=== PATIENT | male | born 1945 | race Caucasian/White ===

== ENCOUNTER 2017-09-08 10:25 | Inpatient (IN) | payer BC ==
[~2017-09-08] VITALS: Ht 182.9 cm; Wt 96.8 kg
[~2017-09-08 10:25] MED LIST: ALDACTONE25 MG PO; DIGOXIN125 MCG PO; LANTUS100 UNITS/; LASIX40 MG PO; LIPITOR20 MG PO; LISINOPRIL10 MG PO; METFORMIN HCL500 MG PO; METOPROLOL SUCC50 MG PO; XARELTO20 MG PO
--- OUTSIDE RECORDS SUMMARY | 2017-09-08 10:28 | XMS REPORT | Clinical Summary ---
Author Author ANGELICA [facility] Organization [facility] Address Unknown Phone Unavailable Care Team Providers Care Engine Inspector Name Role Phone PCP Unavailable Allergies No Known Allergies Current Medications Prescription Sig. Disp. Refills Start End Date Status Date atorvastatin (LIPITOR) 20 Take 20 mg by mouth Active MG tablet daily. difluprednate (DUREZOL) Apply to eye(s). Active 0.05 % Drop digoxin (LANOXIN) 0.125 Take 125 mcg by mouth Active MG tablet daily. insulin glargine (LANTUS) Inject subcutaneously as Active 100 unit/mL injection needed Use as directed . SITagliptin (JANUVIA) 100 Take 100 mg by mouth Active MG tablet daily. losartan (COZAAR) 100 MG Take 100 mg by mouth Active tablet daily. metFORMIN (GLUCOPHAGE) Take 1,000 mg by mouth 2 Active 1000 MG tablet (two) times daily with breakfast and dinner. potassium chloride Take 20 mEq by mouth Active (KLOR-CON) 20 mEq packet daily . spironolactone Take 25 mg by mouth Active (ALDACTONE) 25 MG tablet daily. torsemide (DEMADEX) 20 MG Take 20 mg by mouth Active tablet daily. polymyxin B 1 drop. Active sulf-trimethoprim (POLYTRIM) 10,000 unit- 1 mg/mL Drop rivaroxaban (XARELTO) 10 Take by mouth. 12/25/19 Discontin mg Tab tablet 17 ued Active Problems Not on file Encounters Date Type Specialty Care Team Description 04/28/2017 Hospital Shilpa Eldridge MD Encounter 04/28/2017 Anesthesia Enrique Portillo MD Event 04/28/2017 Procedure Pass 04/28/2017 Surgery Shilpa Eldridge MD EXTRACTION,CATARACT W/IOL 12/25/2016 Hospital Maria Luisa Abad MD Encounter 12/25/2016 Anesthesia Enrique Portillo MD Event 12/25/2016 Procedure Pass 12/25/2016 Surgery Maria Luisa Abad MD VITRECTOMY,REMOVAL PRERETINAL MEMBRANE after 09/07/2016 Social History Tobacco Use Types Packs/Day Years Used Date Former Smoker Quit: 05/18/2004 Smokeless Tobacco: Never Used Alcohol Use Drinks/Week oz/Week Comments Yes 1 Standard 0.5 drinks or equivalent Sex Assigned at Date Recorded Not on file Last Filed Vital Signs Vital Sign Reading Time Taken Blood Pressure 105/51 04/28/2017 11:40 AM COMMUNITY SERVICE SPECIALIST Pulse 56 04/28/2017 11:40 AM COMMUNITY SERVICE SPECIALIST Temperature 36.7 C (98 F) 04/28/2017 11:20 AM COMMUNITY SERVICE SPECIALIST Respiratory Rate 22 04/28/2017 11:40 AM COMMUNITY SERVICE SPECIALIST Oxygen Saturation 98% 04/28/2017 11:40 AM COMMUNITY SERVICE SPECIALIST Inhaled Oxygen - - Concentration Weight 80.3 kg (177 lb) 04/28/2017 9:34 AM COMMUNITY SERVICE SPECIALIST Height 182.9 cm (6') 04/28/2017 9:34 AM COMMUNITY SERVICE SPECIALIST Body Mass Index 24.01 04/28/2017 9:34 AM COMMUNITY SERVICE SPECIALIST Plan of Treatment Not on file Implants Implanted Type Area Lens Cutter Device Expiration Model / Identifier Date Serial / Lot Iol Tecnis Zcb00 23.0 Yanick Ophthalmol Right: Eye ADV MED OPTICS 04/21 [id number] Zng90-52.0 - [id number] ogy / Implanted: Qty: 1 on 2016 by [id number] Shilpa Eldridge MD / N/A Iol Tecnis Preloaded [place] 24.5 Ophthalmol Left: Eye [place] 2019 PCB00 24.5 Pcb00 24.5 - [id number] [id number] LAB:MEDICAL / Implanted: Qty: 1 on 04/28/2017 by OPTICS [id number] Shilpa Eldridge MD / Procedures Procedure Name Priority Date/Time Associated Diagnosis Comments EXTRACTION,CATARACT W/IOL 04/28/2017 H25.812- LEFT EYE 8:58 AM COMMUNITY SERVICE SPECIALIST CATARACT Special Needs (STANDARD LENS) TREATMENT,RETINOPATHY 12/25/2016 H35.379- MACULAR LASER 8:00 AM CDT PU[place]ERING OF RET[place] Special Needs (25 GA) VITRECTOMY,REMOVAL 12/25/2016 H35.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 Component Value Ref Range POC-Glucose Meter 93Comment: TESTED AT [facility] [address] 70 - 110 mg/dL B [facility] [address] Specimen Performing Laboratory Blood [facility] [address] [place] [address] after 09/07/2016
--- OUTSIDE RECORDS SUMMARY | 2017-09-08 10:28 | XMS REPORT ---
Author Author [facility] Address Unknown Phone Unavailable Care Team Providers Care Food Service Agent Name Role Phone PEACE JAQUEZ Unavailable Unavailable TONI DE LA FUENTE Unavailable Unavailable Problems This patient has no known problems. Allergies, Adverse Reactions, Alerts This patient has no known allergies or adverse reactions. Medications This patient has no known medications. Results Test Description Test Time Test Comments Text Results Atomic Results Result Comments POCT-GLUCOSE METER 2017-04-28 10:00:00 POC-GLUCOSE METER (BEAKER) (test srfa=7980) 93 mg/dL 70-110 TESTED AT [facility] [address] [facility] [address] POCT-GLUCOSE [id number] 07:35:00* Test Item Value Reference Range Comments POC-GLUCOSE METER (BEAKER) (test phdb=4117) 101 mg/dL 70-110 TESTED AT [facility] [address] [facility] [address] POCT-GLUCOSE [id number] 09:55:00* Test Item Value Reference Range Comments POC-GLUCOSE METER (BEAKER) (test wveb=2920) 118 mg/dL 70-110 TESTED AT [place] [address] [facility] [address]
[2017-09-08 11:20] LABS: BASOPHILS % 0.3 % (0.0-1.0); EOSINOPHILS # (AUTO) 0.2 (0.0-0.4); EOSINOPHILS % 2.5 % (0.0-6.0); HEMATOCRIT 39.8 % (38.2-49.6); HEMOGLOBIN 13.5 g/dL (14.0-18.0); LYMPHOCYTES # (AUTO) 1.4 (1.0-3.2); LYMPHOCYTES % 19.6 % (18.0-39.1); MEAN CORPUSCULAR HEMOGLOBIN 32.1 pg (28-32); MEAN CORPUSCULAR HGB CONC 33.9 g/dL (31-35); MEAN CORPUSCULAR VOLUME 94.5 fL (81-99); MONOCYTES # (AUTO) 0.6 (0.2-0.8); MONOCYTES % 8.2 % (4.4-11.3); NEUTROPHILS # (AUTO) 4.9 (2.1-6.9); NEUTROPHILS % 68.7 % (38.7-80.0); PLATELET COUNT 139 x10e3/uL (140-360); RED BLOOD COUNT 4.21 x10e6/uL (4.3-5.7); RED CELL DISTRIBUTION WIDTH 12.4 % (11.7-14.4)
[2017-09-08 11:51] LABS: ALBUMIN 3.8 g/dL (3.5-5.0); ALBUMIN/GLOBULIN RATIO 0.9 (0.8-2.0); CALCIUM 9.6 mg/dL (8.4-10.2); CREATININE, SERUM 2.5 mg/dL (0.72-1.25)
[2017-09-08] MEDS ORDERED: DEXTROSE 50% SYRINGE 50 ML IV STA (12:14)
[2017-09-08] MEDS ORDERED: SODIUM BICARBONATE 8.4% 50 ML VIAL IV STA ×2 (12:14→12:17)
[2017-09-08] MEDS ORDERED: INSULIN REGULAR, HUMAN 100 UNIT/1 ML 3ML VIAL IV ONE (13:00)
[2017-09-08] MEDS ORDERED: SODIUM CHLORIDE 0.9% 1000ML 1,000 ML ONE (13:57)
[2017-09-08] MEDS: SODIUM CHLORIDE 0.9% 1000ML 1,000 ML IV SCH (13:58)
[2017-09-08] MEDS ORDERED: ONDANSETRON HCL INJ 2 MG/ML VIAL IV PRN (14:00)
[2017-09-08] MEDS ORDERED: DEXTROSE 50% SYRINGE 50 ML IV PRN (14:00)
--- OUTSIDE RECORDS SUMMARY | 2017-09-08 14:30 | XMS REPORT | Clinical Summary ---
Author Author ANGELICA [facility] Organization [facility] Address Unknown Phone Unavailable Care Team Providers Care Prep Room Supervisor Name Role Phone PCP Unavailable Allergies No [...] Taken Blood Pressure 105/51 04/28/2017 11:40 AM PRESS TENDER SMOKE SIGNAL Pulse 56 04/28/2017 11:40 AM PRESS TENDER SMOKE SIGNAL Temperature 36.7 C (98 F) 04/28/2017 11:20 AM PRESS TENDER SMOKE SIGNAL Respiratory Rate 22 04/28/2017 11:40 AM PRESS TENDER SMOKE SIGNAL Oxygen Saturation 98% 04/28/2017 11:40 AM PRESS TENDER SMOKE SIGNAL Inhaled Oxygen - - Concentration Weight 80.3 kg (177 lb) 04/28/2017 9:34 AM PRESS TENDER SMOKE SIGNAL Height 182.9 cm (6') 04/28/2017 9:34 AM PRESS TENDER SMOKE SIGNAL Body Mass Index 24.01 04/28/2017 9:34 AM PRESS TENDER SMOKE SIGNAL Plan of Treatment Not on file Implants Implanted Type Area [place] Hat Hydraulic Press Operator Device Expiration Model / Identifier Date Serial / Lot Iol Tecnis Zcb00 23.0 Yanick Ophthalmol Right: Eye [employer]ICS 04/21 SNE78-63.0 Bah46-09.0 - [id number] ogy / Implanted: Qty: 1 on 2016 by [id number] Shilpa Eldridge MD / N/A Iol Tecnis Preloaded [place] 24.5 Ophthalmol Left: Eye [place] 2019 PCB00 24.5 Pcb00 24.5 - [id number] ogy LAB:MEDICAL / Implanted: Qty: 1 on 04/28/2017 by OPTICS [id number] Shilpa Eldridge MD / Procedures Procedure Name Priority Date/Time Associated Diagnosis Comments EXTRACTION,CATARACT W/IOL 04/28/2017 H25.812- LEFT EYE 8:58 AM PRESS TENDER SMOKE SIGNAL CATARACT Special Needs (STANDARD LENS) TREATMENT,RETINOPATHY 12/25/2016 [...] Ref Range POC-Glucose Meter 93Comment: TESTED AT [facility] [address] 70 - 110 mg/dL B [facility] [address] Specimen Performing Laboratory Blood [facility] [address] [place] [address] after 09/07/2016
[2017-09-08] MEDS: INSULIN REGULAR, HUMAN 100 UNIT/1 ML 3ML VIAL SQ SCH ×2 (19:00→21:00)
[2017-09-08 21:07] VITALS: BP 174/83
[2017-09-08 21:32] VITALS: BP 164/74
[2017-09-08 22:46] VITALS: BP 164/74
[2017-09-08] MEDS ORDERED: LOSARTAN POTASS25 MG PO (23:00)
[2017-09-08] MEDS ORDERED: DIGOXIN125 MCG PO (23:00)
[2017-09-08] MEDS ORDERED: TORSEMIDE10 MG PO (23:00)
[2017-09-08] MEDS ORDERED: METFORMIN HCL1000 MG PO (23:00)
[2017-09-08] MEDS ORDERED: POTASSIUM CHLO20 ME1 PO (23:00)
[2017-09-08] MEDS ORDERED: LISINOPRIL2.5 MG PO (23:00)
[2017-09-08] MEDS ORDERED: JANUVIA100 MG PO (23:00)
[2017-09-08] MEDS ORDERED: ALDACTONE25 MG PO (23:00)
[2017-09-08] MEDS ORDERED: LIPITOR20 MG PO (23:00)
[2017-09-08] MEDS ORDERED: METOPROLOL SUCC50 MG PO (23:00)
[2017-09-09] VITALS (7 sets, daily range): BP systolic 117–171; BP diastolic 55–79
[2017-09-09] MEDS: SODIUM CHLORIDE 0.9% 1000ML 1,000 ML IV SCH ×2 (03:06→08:11)
[2017-09-09 06:51] LABS: BASOPHILS % 0.2 % (0.0-1.0); EOSINOPHILS # (AUTO) 0.3 (0.0-0.4); HEMATOCRIT 36.9 % (38.2-49.6); HEMOGLOBIN 12.5 g/dL (14.0-18.0); LYMPHOCYTES # (AUTO) 1.7 (1.0-3.2); MEAN CORPUSCULAR HEMOGLOBIN 31.9 pg (28-32); MEAN CORPUSCULAR HGB CONC 33.9 g/dL (31-35); MEAN CORPUSCULAR VOLUME 94.1 fL (81-99); MONOCYTES # (AUTO) 0.7 (0.2-0.8); MONOCYTES % 8.3 % (4.4-11.3); NEUTROPHILS # (AUTO) 5.7 (2.1-6.9); NEUTROPHILS % 67.9 % (38.7-80.0); PLATELET COUNT 118 x10e3/uL (140-360); RED BLOOD COUNT 3.92 x10e6/uL (4.3-5.7); RED CELL DISTRIBUTION WIDTH 12.5 % (11.7-14.4)
[2017-09-09] MEDS: INSULIN REGULAR, HUMAN 100 UNIT/1 ML 3ML VIAL SQ SCH ×4 (07:30→21:00)
[2017-09-09] MEDS: SITAGLIPTIN 100 MG TAB PO SCH (08:08)
[2017-09-09] MEDS: FUROSEMIDE 40 MG TAB PO SCH (08:09)
[2017-09-09] MEDS: METOPROLOL SUCCINATE 50 MG TAB XL PO SCH (08:09)
[2017-09-09] MEDS ORDERED: SOD POLYSTYRENE SULFONATE SUSP 15 GM/60 ML BTL PO STA (08:12)
[2017-09-09] MEDS ORDERED: INSULIN REGULAR, HUMAN 100 UNIT/1 ML 3ML VIAL IV STA (08:12)
[2017-09-09] MEDS ORDERED: DEXTROSE 50% SYRINGE 50 ML IV STA (08:12)
[2017-09-09] MEDS ORDERED: LACTULOSE SYRUP 20 GM/30 ML UDC PO STA (08:12)
[2017-09-09 08:22] LABS: ALBUMIN 3.2 g/dL (3.5-5.0); CREATININE, SERUM 1.92 mg/dL (0.72-1.25)
[2017-09-09] MEDS ORDERED: ATORVASTATIN 20 MG TAB PO SCH (09:00)
[2017-09-09] MEDS ORDERED: LOSARTAN POTASSIUM 25 MG TAB PO SCH (09:00)
[2017-09-09] MEDS ORDERED: DIGOXIN 0.125 MG TAB PO SCH (09:00)
[2017-09-09] MEDS ORDERED: FUROSEMIDE 40 MG TAB PO SCH (09:00)
[2017-09-09] MEDS: SODIUM BICARBONATE 650 MG TAB PO SCH ×2 (09:08→16:22)
--- NOTE | 2017-09-09 09:11 | Consultation ---
DATE OF CONSULTATION: September 09, 2017 Mr. Rob Lindsey is a 72-year-old gentleman with underlying history of cardiac arrhythmia and congestive heart failure followed by Dr. Solano. A long time patient of Dr. Theodore Mccoy. Renal consulted because of hyperkalemia. Patient had outpatient labs that showed abnormal creatinine and elevated potassium. He does take potassium at home. Liberally takes orange juice and bananas soon, as well as on losartan at home. Currently, awake and alert. No apparent distress. Having his breakfast. Denies nausea, vomiting, shortness of breath. Denies prior of any renal insufficiency or kidney stone disease. Has underlying history of hypertension. Has been taking digoxin 0.125 mg daily, which I am going to stop. He is also on losartan, which I am going to stop. He takes Lasix 40 mg daily. He is currently on normal saline, atorvastatin, metoprolol 50 mg p.o. daily, insulin. For dose schedule, please see MAR. SOCIAL HISTORY: Does not smoke or drink. Is . FAMILY HISTORY: Significant for hypertension. Patient states his prostate is mildly enlarged, but never had a history of any kidney stone disease or any kind of cancer. PHYSICAL EXAMINATION GENERAL: Awake, alert and laying supine. No apparent distress. VITALS: Blood pressure of 155/76, pulse rate 77, afebrile. HEAD AND NECK: Cornea clear. Mucosa dry. LUNGS: Relatively clear. HEART: S1 and S2 audible. ABDOMEN: Otherwise soft and nontender. LOWER EXTREMITY EXAMINATION: Shows chronic skin changes, but no edema. IMPRESSION AND PLAN 1. Hyperkalemia. 2. Acute kidney injury. 3. Distal renal tubular acidosis: No urinary symptoms. Medications reviewed. I have discontinued his digoxin. Obtain a stat digoxin level. I will review the ECG. Place on a renal diet. Will give Kayexalate, lactulose, dextrose, and insulin. Repeat potassium. Kidney ultrasound. Renal workup. Urine protein creatinine ratio. Will hold off on losartan. Continue with Lasix. Continue with IV fluids. Discussed with the patient. He is to bring all this medications. Job#: [id number] MN
[2017-09-09 10:05] LABS: CREATININE,URINE RANDOM 88.81 mg/dL (63-166); TOTAL PROTEIN, URINE 40.4 mg/dL (1-14)
[2017-09-09] MEDS ORDERED: ONDANSETRON HCL 4 MG ORAL DISINTEGRATING TAB SL PRN (11:15)
--- NOTE | 2017-09-09 11:23 | Diagnostic Imaging Report ---
PROCEDURE: Frontal and lateral views of the chest. COMPARISON: None available. INDICATIONS: CHF FINDINGS: Lines/tubes: None. Lungs: The lungs are well inflated and clear. There is no evidence of pneumonia or pulmonary edema. Bibasilar atelectasis. Pleura: There is no pleural effusion or pneumothorax. Heart and mediastinum: The heart and the mediastinum are normal. Atherosclerotic calcifications. Bones: No acute bony abnormality. Degenerative changes of the thoracic spine. IMPRESSION: No acute radiographic abnormality. Dictated by: Frederick Pereyra M.D. on 09/09/2017 at 11:25 Electronically approved by: Frederick Pereyra M.D. on 09/09/2017 at 11:25
--- NOTE | 2017-09-09 11:49 | Diagnostic Imaging Report ---
PROCEDURE:US RETROPERITONEAL ( KIDNEY ). COMPARISON:None. INDICATIONS:GUNNAR TECHNIQUE: Bai-scale and color sonographic images of the bilateral kidneys and bladder where obtained in transverse and longitudinal planes. FINDINGS: RIGHT KIDNEY: 12.5 cm, cortex 2.1 cm Cysts: None. Solid masses: None. Stones: None. Hydronephrosis: None. Echogenicity: Normal. LEFT KIDNEY: 11.3 cm, cortex 1.6 cm Cysts: None. Solid masses: None. Stones: Focal echogenic region with posterior shadowing is present in the interpolar region of the left kidney, measuring 0.6 x 0.6 x 0.8 cm. Hydronephrosis: None. Echogenicity: Normal. Bladder: Clayton catheter is present in the decompressed urinary bladder. Prostate: Not visualized. CONCLUSION: No acute sonographic abnormality. Left nonobstructing nephrolithiasis. Dictated by: Frederick Pereyra M.D. on 09/09/2017 at 11:50 Electronically approved by: Frederick Peryera M.D. on 09/09/2017 at 11:50
[2017-09-09] MEDS ORDERED: LACTULOSE SYRUP 20 GM/30 ML UDC PO ONE (16:45)
[2017-09-09] MEDS ORDERED: SOD POLYSTYRENE SULFONATE SUSP 15 GM/60 ML BTL PO ONE (16:45)
[2017-09-10] VITALS (8 sets, daily range): BP systolic 118–165; BP diastolic 65–92
[2017-09-10] MEDS: SODIUM CHLORIDE 0.9% 1000ML 1,000 ML IV SCH ×3 (05:46→23:36)
[2017-09-10 07:26] LABS: ALBUMIN 3.1 g/dL (3.5-5.0); CREATININE, SERUM 1.78 mg/dL (0.72-1.25)
[2017-09-10] MEDS: INSULIN REGULAR, HUMAN 100 UNIT/1 ML 3ML VIAL SQ SCH ×4 (07:30→21:29)
[2017-09-10] MEDS: METOPROLOL SUCCINATE 50 MG TAB XL PO SCH (08:53)
[2017-09-10] MEDS: SITAGLIPTIN 100 MG TAB PO SCH (08:53)
[2017-09-10] MEDS: FUROSEMIDE 40 MG TAB PO SCH (08:53)
[2017-09-10] MEDS: SODIUM BICARBONATE 650 MG TAB PO SCH ×2 (08:53→17:32)
[2017-09-10] MEDS ORDERED: ATORVASTATIN 20 MG TAB PO SCH (21:00)
[2017-09-11] VITALS: BP 144/67
[2017-09-11 04:17] VITALS: BP 147/75
[2017-09-11 07:12] LABS: BASOPHILS % 0.3 % (0.0-1.0); EOSINOPHILS # (AUTO) 0.2 (0.0-0.4); EOSINOPHILS % 3.1 % (0.0-6.0); HEMATOCRIT 32.9 % (38.2-49.6); HEMOGLOBIN 11.2 g/dL (14.0-18.0); LYMPHOCYTES # (AUTO) 1.5 (1.0-3.2); LYMPHOCYTES % 21.6 % (18.0-39.1); MEAN CORPUSCULAR HEMOGLOBIN 31.6 pg (28-32); MEAN CORPUSCULAR VOLUME 92.9 fL (81-99); MONOCYTES # (AUTO) 0.6 (0.2-0.8); MONOCYTES % 8.8 % (4.4-11.3); NEUTROPHILS # (AUTO) 4.7 (2.1-6.9); NEUTROPHILS % 66.1 % (38.7-80.0); PLATELET COUNT 116 x10e3/uL (140-360); RED BLOOD COUNT 3.54 x10e6/uL (4.3-5.7); RED CELL DISTRIBUTION WIDTH 12.4 % (11.7-14.4)
[2017-09-11] MEDS: INSULIN REGULAR, HUMAN 100 UNIT/1 ML 3ML VIAL SQ SCH (07:30)
[2017-09-11 07:40] LABS: ALBUMIN 2.9 g/dL (3.5-5.0); ANION GAP 9.6 mmol/L (8-16); CALCIUM 8.6 mg/dL (8.4-10.2); CREATININE, SERUM 1.68 mg/dL (0.72-1.25); POTASSIUM 4.6 mmol/L (3.5-5.1)
[2017-09-11 07:55] VITALS: BP 156/85
--- NOTE | 2017-09-11 08:28 | Progress Note ---
DATE: September 11, 2017 Feeling okay. No swelling. Renal function is recovering. Potassium is now normal. PHYSICAL EXAMINATION GENERAL: Laying in bed in no distress. VITALS: Temperature is 97.2, blood pressure 147/75, pulse 54. CHEST: Clear. EXTREMITIES: No edema. ABDOMEN: Benign. Potassium is 4.6, creatinine down to 1.68, BUN 34. Ultrasound was normal. ASSESSMENT 1. Hyperkalemia, improved. 2. Question of chronic kidney disease from nephrosclerosis. PLAN: From a renal standpoint, keep low potassium diet. For the time being, avoid any YANETH inhibitors and angiotensin receptor blockers. Discontinue IV fluids. Okay to go home. Stay on the sodium bicarbonate as I suspect he has metabolic acidosis, which may be distal tubular in origin, but is now better compensated. Job#: [id number] WOOD
[2017-09-11] MEDS: METOPROLOL SUCCINATE 50 MG TAB XL PO SCH (09:00)
[2017-09-11] MEDS: SODIUM BICARBONATE 650 MG TAB PO SCH (09:00)
[2017-09-11] MEDS: SITAGLIPTIN 100 MG TAB PO SCH (09:00)
[2017-09-11] MEDS: FUROSEMIDE 40 MG TAB PO SCH (09:00)
== END 2017-09-11 11:10 | disposition home or self-care (01) | DRG 641 ==
LOC: ER 10:25 → ERHOLD 14:27 → MED/SURG 20:47
PROVIDERS: ADMIT Internal Medicine; ATTEND Internal Medicine
DX: E87.5 Hyperkalemia (principal); N17.9 Acute kidney failure, unspecified; E87.2 Acidosis; I13.0 Hypertensive heart and chronic kidney disease with heart failure and stage 1 through stage 4 chronic kidney disease, or unspecified chronic kidney disease; I50.9 Heart failure, unspecified; E11.22 Type 2 diabetes mellitus with diabetic chronic kidney disease; N18.3 Chronic kidney disease, stage 3 (moderate); N25.89 Other disorders resulting from impaired renal tubular function; N40.0 Benign prostatic hyperplasia without lower urinary tract symptoms; L98.9 Disorder of the skin and subcutaneous tissue, unspecified
CPT/HCPCS: 36415; 71046; 76770; 80053; 80162; 82570; 82948; 83735; 84132; 84156; 85025; 93005; 99284; J7030; J7799

== ENCOUNTER 2018-06-14 09:04 | Inpatient (IN) | payer BC, MEDICARE ==
[~2018-06-14] VITALS: Ht 182.9 cm; Wt 98.4 kg
[~2018-06-14 09:04] MED LIST changes: +JANUVIA100 MG PO; +LISINOPRIL2.5 MG PO; +LOSARTAN POTASS25 MG PO; +METFORMIN HCL1000 MG PO; +POTASSIUM CHLO20 ME1 PO; +TORSEMIDE10 MG PO
--- OUTSIDE RECORDS SUMMARY | 2018-06-14 09:08 | XMS REPORT | Clinical Summary ---
Author Author ANGELICA [facility] Organization [facility] Address Unknown Phone Unavailable Care Team Providers Care Manager Order Name Role Phone Theodore Mccoy PCP Allergies No Known Allergies Medications End Date Status Medication Sig Dispensed Refills Start Date Active atorvastatin (LIPITOR) 20 Take 20 mg by 0 MG tablet mouth daily. Active difluprednate (DUREZOL) Apply to 0 0.05 % Drop eye(s). Active digoxin (LANOXIN) 0.125 Take 125 mcg 0 MG tablet by mouth daily. Active insulin glargine (LANTUS) Inject 0 100 unit/mL injection subcutaneousl y as needed Use as directed . Active SITagliptin (JANUVIA) 100 Take 100 mg 0 MG tablet by mouth daily. Active losartan (COZAAR) 100 MG Take 100 mg 0 tablet by mouth daily. Active metFORMIN (GLUCOPHAGE) Take 1,000 mg 0 1000 MG tablet by mouth 2 (two) times daily with breakfast and dinner. Active potassium chloride Take 20 mEq 0 (KLOR-CON) 20 mEq packet by mouth daily . Active spironolactone Take 25 mg by 0 (ALDACTONE) 25 MG tablet mouth daily. Active torsemide (DEMADEX) 20 MG Take 20 mg by 0 tablet mouth daily. Active polymyxin B 1 drop. 0 sulf-trimethoprim (POLYTRIM) 10,000 unit- 1 mg/mL Drop Active Problems Not on file Social History Date Tobacco Use Types Packs/Day Years Used Quit: 05/18/2004 Former Smoker Smokeless Tobacco: Never Used Alcohol Use Drinks/Week oz/Week Comments Yes 1 Standard 0.5 drinks or equivalent Sex Assigned at Date Recorded Not on file Industry Job Start Date Occupation Not on file Not on file Not on file Travel End Travel History Travel Start No recent travel history available. Last Filed Vital Signs Not on file Plan of Treatment Not on file Implants Device Identifier Shelf Expiration Date Model / Serial / Lot Implanted Type Area Manufactur er 04/21/2020 GCV62-84.0 / [id number] / N/A Iol Tecnis Zcb00 23.0 Yanick Ophthalmol Right: Eye ADV MED Mte74-05.0 - [id number] ogy OPTICS Implanted: Qty: 1 on 2016 by Shilpa Eldridge MD 10/23/2019 PCB00 24.5 / [id number] / Iol Tecnis Preloaded [place] 24.5 Ophthalmol Left: Eye [place] Pcb00 24.5 - [id number] ogy LAB:MEDICA Implanted: Qty: 1 on 04/28/2017 by L Shilpa Jensen MD Results Not on fileafter 06/13/2017 Insurance Payer Benefit Subscriber ID Type Phone Address Plan / Group BLUE CROSS/BLUE SHIELD BCBS PPO xxxxxxxxxxxx PPO [phone] [address] [place] [address] CHOICE
[2018-06-14] MEDS ORDERED: PIPER-TAZ 3.375 GM 50 ML IV ONE (09:30)
[2018-06-14 09:44] LABS: BASOPHILS % 0.3 % (0.0-1.0); EOSINOPHILS # (AUTO) 0.1 (0.0-0.4); EOSINOPHILS % 0.8 % (0.0-6.0); HEMATOCRIT 29.8 % (38.2-49.6); HEMOGLOBIN 10.7 g/dL (14.0-18.0); LYMPHOCYTES # (AUTO) 0.8 (1.0-3.2); LYMPHOCYTES % 9.2 % (18.0-39.1); MEAN CORPUSCULAR HGB CONC 35.9 g/dL (31-35); MEAN CORPUSCULAR VOLUME 94.6 fL (81-99); MONOCYTES # (AUTO) 0.8 (0.2-0.8); MONOCYTES % 8.6 % (4.4-11.3); NEUTROPHILS # (AUTO) 7.1 (2.1-6.9); NEUTROPHILS % 79.1 % (38.7-80.0); PLATELET COUNT 233 x10e3/uL (140-360); RED BLOOD COUNT 3.15 x10e6/uL (4.3-5.7); RED CELL DISTRIBUTION WIDTH 12.9 % (11.7-14.4)
[2018-06-14] MEDS ORDERED: ONDANSETRON HCL INJ 2MG/ML 2ML 2 MG/ML VIAL IV PRN (09:45)
[2018-06-14] MEDS ORDERED: DEXTROSE 50% SYRINGE 50 ML IV PRN (09:45)
[2018-06-14] MEDS ORDERED: SODIUM CHLORIDE 0.9% 1000ML 1,000 ML ONE (09:55)
[2018-06-14] MEDS: SODIUM CHLORIDE 0.9% 1000ML 1,000 ML IV SCH ×2 (09:56→21:27)
[2018-06-14] MEDS ORDERED: VANCOMYCIN HCL 1,500 MG in SODIUM CHLORIDE 0.9% 250ML 300 ML IV ONE (10:00)
[2018-06-14] MEDS ORDERED: MORPHINE SULFATE INJ 4 MG/ML INJ 1ML IV PRN (10:00)
[2018-06-14 10:15] LABS: ALBUMIN 2.4 g/dL (3.5-5.0); ALBUMIN/GLOBULIN RATIO 0.5 (0.8-2.0); ANION GAP 17.6 mmol/L (8-16); CALCIUM 9.3 mg/dL (8.4-10.2); CREATININE, SERUM 2.95 mg/dL (0.72-1.25); POTASSIUM 4.6 mmol/L (3.5-5.1)
[2018-06-14 10:34] LABS: BILIRUBIN,URINE NEGATIVE (NEGATIVE); CLARITY,URINE CLEAR (CLEAR); COLOR,URINE YELLOW (YELLOW); KETONES,URINE NEGATIVE (NEGATIVE); LEUKOCYTE ESTERASE ,URINE NEGATIVE (NEGATIVE); NITRITE,URINE NEGATIVE (NEGATIVE); PROTEIN,URINE DIPSTICK NEGATIVE (NEGATIVE); URINE UROBILINOGEN 0.2 mg/dL (0.2 - 1)
[2018-06-14] MEDS ORDERED: MORPHINE SULFATE 2 MG/ML SYR 1ML IV PRN (11:00)
[2018-06-14] MEDS ORDERED: SODIUM CHLORIDE 0.9% 1000ML 2,000 ML IV ONE (11:00)
[2018-06-14 11:03] LABS: EPITHELIAL CELLS,URINE FEW /LPF; WBC,URINE (MAN) 0-5 /HPF (0-5)
[2018-06-14 11:04] LABS: TRANSITIONAL EPI CELLS,URINE MODERATE
--- NOTE | 2018-06-14 11:10 | Diagnostic Imaging Report ---
Exam: Left elbow 3 views History: Pain and swelling Comparison: None. Findings: No fracture or malalignment. Mild elbow degenerative arthrosis. Soft tissue swelling of the elbow most prominent posteriorly. Impression: No acute osseous abnormality Soft tissue swelling of the elbow. No foci of gas or radiographic osteomyelitis Signed by: Dr. Kodi Mclaughlin M.D. on 06/14/2018 11:07 AM
--- OUTSIDE RECORDS SUMMARY | 2018-06-14 11:28 | XMS REPORT | Clinical Summary ---
Author Author ANGELICA [facility] Organization [facility] Address Unknown Phone Unavailable Care Team Providers Care Special Investigator Name Role Phone Theodore Mccoy PCP Allergies [...] Lot Implanted Type Area Manufactur er 04/21/2020 PYD21-98.0 / [id number] / N/A Iol Tecnis Zcb00 23.0 Yanick Ophthalmol Right: Eye ADV MED Hkw02-79.0 - [id number] ogy OPTICS Implanted: Qty: 1 on 2016 by Shilpa Eldridge MD 10/23/2019 PCB00 24.5 / [id number] / Iol Tecnis Preloaded [place] 24.5 Ophthalmol Left: Eye [place] Pcb00 24.5 - [id number] ogy LAB:MEDICA Implanted: Qty: 1 on 04/28/2017 by L Shilpa Jensen MD Results Not on fileafter 06/13/2017 Insurance Payer Benefit Subscriber ID Type Phone Address Plan / Group BLUE CROSS/BLUE SHIELD BCBS PPO xxxxxxxxxxxx PPO [phone] [address] [place] [address] CHOICE
[2018-06-14] MEDS: INSULIN REGULAR, HUMAN 100 UNIT/1 ML 3ML VIAL SQ SCH ×3 (11:53→21:00)
[2018-06-14 12:40] VITALS: BP 121/59
[2018-06-14 15:21] VITALS: BP 121/59
[2018-06-14 15:28] VITALS: BP 121/59
[2018-06-14 16:15] VITALS: BP 148/67
[2018-06-14 21:25] VITALS: BP 148/67
--- NOTE | 2018-06-14 23:56 | Consultation ---
DATE OF CONSULTATION: June 14, 2018 CHIEF COMPLAINT: Left elbow pain. HISTORY OF PRESENT ILLNESS: This patient is a pleasant 72-year-old male with a significant history of insulin-dependent diabetes mellitus who presents complaining of left elbow pain that started roughly 2 weeks ago. He denies any injury to the left elbow. He states that he has had swelling and redness around the left elbow. He states that roughly 3 to 4 days ago he started having drainage coming from the elbow. He denies any fever or chills. He states he has been treated with oral antibiotics by his primary care physician, Dr. Mccoy, for almost 2 weeks. PAST MEDICAL HISTORY: See H and P. SOCIAL HISTORY: Patient has roughly 62-[id number]-[id number] history of smoking. He states he quit roughly 20 years ago. He denies any ETOH or illicit drug use. He lives with his spouse. PHYSICAL EXAMINATION GENERAL: This is a pleasant, well-nourished male in no apparent distress. He is awake, alert, and oriented appropriately. FOCUS EXAM: Gross inspection of his left elbow shows some mild swelling and perhaps a mild effusion. There is some mild surrounding erythema. He has a punctate draining sinus over the lateral aspect of the elbow. This is draining mild serosanguineous drainage. I was able to express a mild amount of purulent material. After this, it continued to drain serosanguineous drainage. He demonstrates full range of motion with flexion, extension, pronation, and supination. Distal motor and sensory exams are normal. IMAGING: X-rays of the left elbow show some early arthritic changes. There is some mild soft tissue swelling, but no effusion. ASSESSMENT AND PLAN: This is a 72-year-old gentleman with left elbow cellulitis with a draining sinus. The findings were discussed with the patient. Given his present symptoms, I would recommend conservative management with wound care and IV antibiotics. The possibility of irrigation and debridement was discussed. He does not have a tense effusion and has full range of motion and thus I would recommend conservative management. We will get wound care involved. Nursing was instructed in routine dressing changes. We will follow the patient with you. Thank you for the consultation. Dictated by: Harvey Manley PA-C Job#: [id number] CF
[2018-06-15] VITALS (7 sets, daily range): BP systolic 132–141; BP diastolic 62–73
--- NOTE | 2018-06-15 03:08 | NUR ---
Patient received lying in bed. AAO x 3. No complaints of pain. No signs of respiratory distress. Dressing to left elbow clean, dry and intact. IVF infusing at 125 cc/ hr. Bed locked and in lowest position. Bed rails up x 2. Patient instructed to call for assistance when needed. Call light within reach.
[2018-06-15 05:39] LABS: ALBUMIN 1.9 g/dL (3.5-5.0); ALBUMIN/GLOBULIN RATIO 0.5 (0.8-2.0); ANION GAP 12.5 mmol/L (8-16); CALCIUM 8.1 mg/dL (8.4-10.2); CREATININE, SERUM 2.21 mg/dL (0.72-1.25); POTASSIUM 4.5 mmol/L (3.5-5.1)
[2018-06-15] MEDS ORDERED: PIPER-TAZ 3.375 GM 50 ML IV SCH (06:00)
[2018-06-15 06:09] LABS: BASOPHILS % 0.2 % (0.0-1.0); EOSINOPHILS # (AUTO) 0.1 (0.0-0.4); EOSINOPHILS % 1.3 % (0.0-6.0); HEMATOCRIT 26.7 % (38.2-49.6); HEMOGLOBIN 8.4 g/dL (14.0-18.0); LYMPHOCYTES # (AUTO) 0.7 (1.0-3.2); LYMPHOCYTES % 11.7 % (18.0-39.1); MEAN CORPUSCULAR HEMOGLOBIN 31.2 pg (28-32); MEAN CORPUSCULAR HGB CONC 31.5 g/dL (31-35); MEAN CORPUSCULAR VOLUME 99.3 fL (81-99); MONOCYTES # (AUTO) 0.6 (0.2-0.8); MONOCYTES % 8.8 % (4.4-11.3); NEUTROPHILS # (AUTO) 4.7 (2.1-6.9); NEUTROPHILS % 74.5 % (38.7-80.0); PLATELET COUNT 209 x10e3/uL (140-360); RED BLOOD COUNT 2.69 x10e6/uL (4.3-5.7); RED CELL DISTRIBUTION WIDTH 12.6 % (11.7-14.4)
[2018-06-15] MEDS: SODIUM CHLORIDE 0.9% 1000ML 1,000 ML IV SCH ×3 (06:21→15:19)
[2018-06-15] MEDS ORDERED: VANCOMYCIN 1GM/NS 250 ML 250 ML IV SCH (06:45)
[2018-06-15 07:32] LABS: ANISOCYTOSIS SLIGHT; BAND NEUTROPHILS % (MANUAL) 2 %; EOSINOPHILS % (MANUAL) 1 % (0-7); LYMPHOCYTES % (MANUAL) 8 % (19-48); METAMYELOCYTES % (MANUAL) 1 % (0-0); MONOCYTES % (MANUAL) 3 % (3.4-9.0); NEUTROPHILS % (MANUAL) 85 % (40-74); PLATELET ESTIMATE ADEQUATE; POIKILOCYTOSIS SLIGHT; RBC MORPHOLOGY COMMENT NORMAL
[2018-06-15 07:33] LABS: PLATELET MORPHOLOGY COMMENT NORMAL
[2018-06-15] MEDS ORDERED: FUROSEMIDE 40 MG TAB PO SCH (09:00)
[2018-06-15] MEDS: RIVAROXABAN 20 MG TABLET PO SCH (09:00)
[2018-06-15] MEDS: METOPROLOL SUCCINATE 50 MG TAB XL PO SCH (09:30)
[2018-06-15] MEDS: SITAGLIPTIN 100 MG TAB PO SCH (09:30)
[2018-06-15] MEDS: FUROSEMIDE 40 MG TAB PO SCH (09:30)
[2018-06-15] MEDS: METFORMIN HCL 500 MG TAB PO SCH ×2 (09:30→16:50)
[2018-06-15] MEDS: INSULIN REGULAR, HUMAN 100 UNIT/1 ML 3ML VIAL SQ SCH ×4 (09:30→21:00)
[2018-06-15] MEDS: ATORVASTATIN 20 MG TAB PO SCH (09:30)
[2018-06-15] MEDS ORDERED: eliquis PO (10:59)
[2018-06-15] MEDS ORDERED: entresto PO (10:59)
[2018-06-15] MEDS ORDERED: CIPRO500 MG PO (10:59)
--- NOTE | 2018-06-15 14:07 | NUR ---
WOUND CARE CONSULTATION - INITIAL EVALUATION - Patient admitted for cellulitis of Left Elbow with open draining wounds - Presents with open wound to Left Arm at Lateral Aspect and At Bony Elbow Prominence posteriorly. (1x1x2.5 cm) Probing to bone @ elbow. - Periwound hot to touch, boggy. spongy over an area of approx 25 cm x 20cm. - Left lateral Forearm Indurated and tender to touch. - Copious amounts of serosanguineous fluid with few blood clots expressed saturating 1 tray of 4x4 gauze. - Pt awaiting planned procedure for tomorrow for Incision and Wash Out of Left Elbow. - Ravi Score 20 - Conservative PUP with Visco Mattress in progress. RECOMMENDATION: 1. Agree with conservative wound care until I&D washout procedure performed. 2. Left Elbow -Cellulitis with Draining Wounds. - Irrigate wound with Normal Saline Solution and Pat Dry with 4x4 gauze. - Apply Staggered/ Bolstered 4x4 gauze then ABD pad and Secure with Kerlix Wrap and Light Duy Wrap BID and PRN Strikethrough. (No Packing- Goal: Allow Wound To Remain Open and Continue to Drain Onto Dressing) Thank you for consulting with Wound Care. Addendum: 06/15/18 at 1419 by Alexsander Velez RN Amended: Links added.
[2018-06-15] MEDS ORDERED: CEFEPIME HCL 1 GM VIAL IV SCH (15:00)
--- NOTE | 2018-06-15 15:15 | NUR ---
Visit made by the Spiritual Care Department Pastoral Visitor, Myrna Austin. PV provided pastoral presence, hospitality, and supportive listening. Pastoral Visitor informed pt/family of the scope of [employer] and availability. LAUREN JUARES [employer] Spiritual Care Department O: [phone] Pager: [phone] ([phone] calling from)
[2018-06-15] MEDS: CEFEPIME 1GM/NS 0.9% 50 ML 50 ML IV SCH (15:19)
--- NOTE | 2018-06-15 15:55 | Consultation ---
DATE OF CONSULTATION: June 15, 2018 Mr. Lindsey is a pleasant 72-year-old male who has a history of diabetes. Apparently, about 3-4 weeks ago he started having some kind of a defect on his left elbow. Did not pay much attention to it. Gradually got worse. Tried . Went and saw Dr. Mccoy. Apparently, Dr. Mccoy's office started the patient on IV antibiotics and some oral antibiotics as the patient reports. Was sent home. The elbow gradually got worse without any improvement being on antibiotics. Started having some serosanguineous fluid on the pillow when he woke up one day and decided to go back to Dr. Mccoy's office. Upon arrival, the patient was seen, and therefore, the patient was transferred to [facility] for evaluation and possible treatment options of the left elbow. The patient was seen by orthopedic surgery. The plan is for I and D tomorrow. The patient was diagnosed by orthopedic surgery, Dr. Daniels, with septic olecranon bursitis. PAST MEDICAL HISTORY: Including diabetes, hypertension, hyperlipidemia. ALLERGIES: THERE ARE NO ALLERGIES LISTED. LABORATORY STUDIES: White blood cells 6.26, hemoglobin 8.4 and platelet count of 209,000. Creatinine 2.21. Blood culture negative 24 hours times 2. Left elbow culture shows Staph aureus. However, sensitivity is pending. X-ray of the left elbow was done yesterday showing no acute osseous abnormalities. Soft tissue swelling of the elbow. No foci of gas or radiographic osteomyelitis. REVIEW OF SYSTEMS: No nausea, vomiting, fever, chills, chest pain, or shortness of breath. PHYSICAL EXAMINATION GENERAL: Alert and oriented times 3. Pleasant. CV: S1 and S2. Chest with equal expansion. Clear to auscultation. No acute distress. ABDOMEN: Soft and nontender. No distention. Bowel sounds positive in all 4 quadrants. HEENT: Moist. No pallor. No JVD. EXTREMITIES: Left elbow swollen. Erythema from upper arm to almost ulnar radial area. Limited range of motion and discomfort. There is a small ulceration at the tip of the elbow. However, there is no pus or drainage noted. ASSESSMENT AND PLAN 1. Possible septic olecranon bursitis, infected. 2. Cellulitis of the left elbow: Cultures growing Staphylococcus aureus. The patient is on vancomycin and Zosyn. Pending incision and drainage for tomorrow. Change antibiotics to vancomycin and cefepime. Await surgical debridement tomorrow. 3. The patient has renal insufficiency: Adjust antibiotics as creatinine is 2.21. This case was discussed with Dr. Ledbetter. I want to thank you for this kind consult. Further management of this patient is based on daily findings, laboratory and physical examination. DICTATED BY BRIDGER BROWNE Job#: [id number] MD
--- NOTE | 2018-06-15 19:30 | NUR ---
Patient received sitting up in bed. AAO x 3. No acute distress noted. Fall precautions maintained. Patient instructed to call for assistance when needed. Call light within reach.
--- NOTE | 2018-06-15 23:55 | NUR ---
Patient informed about recommended surgical procedure---Irrigation and drainage of left elbow. Patient instructed about NPO status after midnight. Patient verbalized understanding. Patient voluntarily signed "Disclosure and Consent" form.
[2018-06-16] VITALS (9 sets, daily range): BP systolic 130–145; BP diastolic 64–82
[2018-06-16] MEDS: SODIUM CHLORIDE 0.9% 1000ML 1,000 ML IV SCH ×2 (01:44→09:08)
[2018-06-16] MEDS: VANCOMYCIN 1GM/NS 250 ML 250 ML IV SCH (07:00)
--- NOTE | 2018-06-16 07:01 | NUR ---
Shift report given to oncoming nurse. Patient in stable condition.
[2018-06-16] MEDS: INSULIN REGULAR, HUMAN 100 UNIT/1 ML 3ML VIAL SQ SCH ×4 (07:30→21:00)
[2018-06-16] MEDS: FUROSEMIDE 40 MG TAB PO SCH (09:00)
[2018-06-16] MEDS: SITAGLIPTIN 100 MG TAB PO SCH (09:00)
[2018-06-16] MEDS: RIVAROXABAN 20 MG TABLET PO SCH (09:00)
[2018-06-16] MEDS: METFORMIN HCL 500 MG TAB PO SCH ×2 (09:00→16:06)
[2018-06-16] MEDS: METOPROLOL SUCCINATE 50 MG TAB XL PO SCH (09:00)
[2018-06-16] MEDS: ATORVASTATIN 20 MG TAB PO SCH (09:00)
[2018-06-16] MEDS ORDERED: BACITRACIN 50,000 UNIT VIAL ONE (12:18)
[2018-06-16] MEDS ORDERED: SODIUM CHLORIDE 0.9% 1000ML 1,000 ML IV SCH (13:06)
[2018-06-16] MEDS ORDERED: ZOLPIDEM TARTRATE 5 MG TAB PO PRN (13:15)
[2018-06-16] MEDS ORDERED: HYDROCODONE/APAP 5MG-325MG TAB PO PRN (13:15)
[2018-06-16] MEDS ORDERED: VANCOMYCIN 1GM/NS 250 ML 250 ML IV SCH (13:15)
[2018-06-16] MEDS ORDERED: KETOROLAC TROMETHAMINE 30 MG/ML VIAL IV PRN (13:15)
[2018-06-16] MEDS ORDERED: PROMETHAZINE HCL (IM) 25 MG/ML VIAL INJ PRN (13:15)
[2018-06-16] MEDS ORDERED: DIPHENHYDRAMINE HCL INJ 50 MG/ML VIAL IM/IV PRN (13:15)
[2018-06-16] MEDS ORDERED: ACETAMINOPHEN 650 MG SUPP PR PRN (13:15)
[2018-06-16] MEDS ORDERED: ONDANSETRON HCL INJ 2MG/ML 2ML 2 MG/ML VIAL IV PRN (13:15)
[2018-06-16] MEDS ORDERED: HYDROCODONE/APAP 7.5MG-325MG 1 EA TAB PO PRN (13:15)
[2018-06-16] MEDS ORDERED: DOCUSATE SODIUM 100 MG CAP PO PRN (13:15)
[2018-06-16] MEDS ORDERED: FENTANYL CITRATE/PF 100MCG/2 ML INJ ONE (13:57)
[2018-06-16] MEDS ORDERED: PROPOFOL IV EMULSION 10 MG/ML 20 ML VIAL ONE (15:10)
[2018-06-16] MEDS ORDERED: LIDOCAINE HCL 2% LOCAL INJ 5 ML SDV VIAL INJ ONE (15:10)
[2018-06-16] MEDS: CEFEPIME 1GM/NS 0.9% 50 ML 50 ML IV SCH (16:05)
[2018-06-16] MEDS: CELECOXIB 200 MG CAP PO SCH (16:07)
[2018-06-16] MEDS ORDERED: CELECOXIB 100 MG CAP PO SCH (17:00)
[2018-06-16] MEDS: ACETAMINOPHEN 1000 MG/100 ML IV SCH (17:01)
[2018-06-17] VITALS (8 sets, daily range): BP systolic 126–141; BP diastolic 60–72
[2018-06-17] MEDS ORDERED: SODIUM CHLORIDE 0.9% 250ML 250 ML ONE (00:11)
[2018-06-17] MEDS: ACETAMINOPHEN 1000 MG/100 ML IV SCH ×3 (00:20→12:48)
[2018-06-17 05:54] LABS: BASOPHILS % 0.1 % (0.0-1.0); EOSINOPHILS # (AUTO) 0.1 (0.0-0.4); EOSINOPHILS % 1.4 % (0.0-6.0); HEMATOCRIT 23.2 % (38.2-49.6); HEMOGLOBIN 7.3 g/dL (14.0-18.0); LYMPHOCYTES % 11.6 % (18.0-39.1); MEAN CORPUSCULAR HEMOGLOBIN 31.2 pg (28-32); MEAN CORPUSCULAR HGB CONC 31.5 g/dL (31-35); MEAN CORPUSCULAR VOLUME 99.1 fL (81-99); MONOCYTES # (AUTO) 0.6 (0.2-0.8); MONOCYTES % 7.3 % (4.4-11.3); NEUTROPHILS # (AUTO) 6.5 (2.1-6.9); NEUTROPHILS % 76.3 % (38.7-80.0); PLATELET COUNT 236 x10e3/uL (140-360); RED BLOOD COUNT 2.34 x10e6/uL (4.3-5.7); RED CELL DISTRIBUTION WIDTH 12.9 % (11.7-14.4)
[2018-06-17 06:08] LABS: ALBUMIN 1.9 g/dL (3.5-5.0); ALBUMIN/GLOBULIN RATIO 0.6 (0.8-2.0); ANION GAP 11.1 mmol/L (8-16); CREATININE, SERUM 1.65 mg/dL (0.72-1.25); POTASSIUM 4.1 mmol/L (3.5-5.1)
[2018-06-17] MEDS: VANCOMYCIN 1GM/NS 250 ML 250 ML IV SCH (06:43)
[2018-06-17] MEDS: INSULIN REGULAR, HUMAN 100 UNIT/1 ML 3ML VIAL SQ SCH ×4 (07:30→21:00)
--- NOTE | 2018-06-17 08:05 | NUR ---
Spoke to in regards to Hgb 7.3 and MD states to "continue to monitor" as he saw patient this am and "is stable." received new order to repeat CBC in am.
[2018-06-17 08:33] LABS: ANISOCYTOSIS SLIGHT; HYPOCHROMASIA MODERATE; LYMPHOCYTES % (MANUAL) 14 % (19-48); METAMYELOCYTES % (MANUAL) 1 % (0-0); MONOCYTES % (MANUAL) 6 % (3.4-9.0); MYELOCYTES % (MANUAL) 1 % (0-0); NEUTROPHILS % (MANUAL) 77 % (40-74); PLATELET ESTIMATE ADEQUATE; PLATELET MORPHOLOGY COMMENT NORMAL; RBC MORPHOLOGY COMMENT NORMAL
[2018-06-17] MEDS: RIVAROXABAN 20 MG TABLET PO SCH (08:42)
[2018-06-17] MEDS: CELECOXIB 200 MG CAP PO SCH ×2 (08:47→17:16)
[2018-06-17] MEDS: SITAGLIPTIN 100 MG TAB PO SCH (08:47)
[2018-06-17] MEDS: METFORMIN HCL 500 MG TAB PO SCH ×2 (08:47→17:16)
[2018-06-17] MEDS: ATORVASTATIN 20 MG TAB PO SCH (08:51)
[2018-06-17] MEDS: FUROSEMIDE 40 MG TAB PO SCH (08:51)
[2018-06-17] MEDS: METOPROLOL SUCCINATE 50 MG TAB XL PO SCH (08:52)
[2018-06-17] MEDS ORDERED: ACETAMINOPHEN 1000 MG/100 ML IV PRN (13:15)
[2018-06-17] MEDS ORDERED: FENTANYL CITRATE/PF 100MCG/2 ML INJ ONE (13:45)
--- NOTE | 2018-06-17 14:01 | NUR ---
WOUND CARE CONSULTATION- FOLLOW UP VISIT - Patient admitted for cellulitis of left elbow with open draining wounds. - Patient underwent I&D and Washout of left Elbow 06/16/18. WBC 8.52 HGB7.3 HCT23.2 NEUT%76.3 ALB1.9 - Follow Up Visit Today : - Left Elbow - Reinforced Dressing today as requested by Harry Gamez. -3+ pitting edema noted to hand. - Dressing changed with accommodation to reduce edema of hand. - ABD Pad to Incision area followed by, - Kerlix Gauze wrapped fingers, hand and arm to armpit. - Coban Wrap to fingers and amira bandage from alana to armpit for Mild Compression. - Patient states dressing comfortable. - Instructed patient if coban feels uncofortable or too tight to have RN remove coban wraps. - Reinforce dressing as needed for strikethrough. RECOMMENDATION: - Will follow up tomorrow for Complete Dressing Change and evaluation for wound care instructions for discharge planning. Thank you for consulting with Wound Care. Addendum: 06/17/18 at 1415 by Alexsander Velez RN Amended: Links added.
[2018-06-18] VITALS: BP 131/65
[2018-06-18 06:00] VITALS: BP 132/66
[2018-06-18 06:21] LABS: BASOPHILS % 0.2 % (0.0-1.0); EOSINOPHILS # (AUTO) 0.2 (0.0-0.4); EOSINOPHILS % 1.8 % (0.0-6.0); HEMATOCRIT 22.4 % (38.2-49.6); HEMOGLOBIN 7.3 g/dL (14.0-18.0); LYMPHOCYTES # (AUTO) 1.2 (1.0-3.2); LYMPHOCYTES % 14.3 % (18.0-39.1); MEAN CORPUSCULAR HEMOGLOBIN 31.6 pg (28-32); MEAN CORPUSCULAR HGB CONC 32.6 g/dL (31-35); MONOCYTES # (AUTO) 0.6 (0.2-0.8); MONOCYTES % 6.8 % (4.4-11.3); NEUTROPHILS # (AUTO) 6.2 (2.1-6.9); NEUTROPHILS % 74.1 % (38.7-80.0); PLATELET COUNT 251 x10e3/uL (140-360); RED BLOOD COUNT 2.31 x10e6/uL (4.3-5.7)
[2018-06-18 06:42] LABS: ANION GAP 12.8 mmol/L (8-16); CALCIUM 8.4 mg/dL (8.4-10.2); CREATININE, SERUM 1.71 mg/dL (0.72-1.25); POTASSIUM 4.8 mmol/L (3.5-5.1)
[2018-06-18] MEDS: VANCOMYCIN 1GM/NS 250 ML 250 ML IV SCH (06:59)
--- NOTE | 2018-06-18 07:00 | NUR ---
Received patient mid fowlers position, side rails upx2, call light within reach. AAOX3 to time, person, place. Respirations even and unlabored. YANETH wrap to left arm clean, dry, and intact. Instructed patient to use call light for assistance. Voiced understanding. Will continue to monitor.
[2018-06-18] MEDS: INSULIN REGULAR, HUMAN 100 UNIT/1 ML 3ML VIAL SQ SCH ×3 (07:30→16:30)
[2018-06-18 08:10] VITALS: BP 121/60
[2018-06-18 08:20] VITALS: BP 121/60
[2018-06-18] MEDS: SITAGLIPTIN 100 MG TAB PO SCH (08:55)
[2018-06-18] MEDS: ATORVASTATIN 20 MG TAB PO SCH (08:55)
[2018-06-18] MEDS: FUROSEMIDE 40 MG TAB PO SCH ×2 (08:55→16:33)
[2018-06-18] MEDS: METFORMIN HCL 500 MG TAB PO SCH ×2 (08:55→16:33)
[2018-06-18] MEDS: RIVAROXABAN 20 MG TABLET PO SCH (08:56)
[2018-06-18] MEDS: METOPROLOL SUCCINATE 50 MG TAB XL PO SCH (08:56)
--- NOTE | 2018-06-18 11:10 | NUR ---
WOUND CARE CONSULTATION- FOLLOW UP VISIT - Patient admitted for cellulitis of left elbow with open draining wounds. - Patient underwent I&D and Washout of left Elbow 06/16/18. - Follow Up Visit Today : - Patient in good spirits eager to go home to his . - Left Elbow -Dressing changed today as requested by Harry Gamez. - hand edema much improved. - Wound assessment performed and documented. - Bloody purulent drainage upon removal of packing gauze. - Undermining from 12-12 o'clock noted ( @12 o'clock=8cm, @6 o'clock=11cm, 9 o'clock = 6cm, 3 o'clock= 4cm) IMPRESSION: - Healing - Left Elbow -S/P I&D with Washout. RECOMMENDATION: - Will require Home Health with daily wound care and packing changes for discharge. - Follow up with Harry Gamez in 1 wk at his clinic. - Continue IV ABX per Dr. Ledbetter -Left Elbow -S/P I&D with Washout: WOUND CARE INSTRUCTIONS: 1. - Remove dressing and packing 2. -Irrigate wound with 50 cc NS Flush and Pat Dry thoroughly.with 4x4 gauze. 3. - Lightly Pack wound with single strand of 1/2" Iodoform gauze packing to undermining areas using cotton tip applicator leaving "tail" out. ( @12 o'clock=8cm, @6 o'clock=11cm, 9 o'clock = 6cm, 3 o'clock= 4cm) 4. - Cover wound with Staggered/ Bolstered 4x4 gauze and ABD pad. 5. Secure with Kerlix Wrap and Light Duy Wrap Daily. Thank you for consulting with Wound Care. Addendum: 06/18/18 at 1123 by Alexsander Velez RN Amended: Links added.
[2018-06-18 12:13] VITALS: BP 140/73
--- NOTE | 2018-06-18 12:28 | NUR ---
Met with patient and discussed order for [facility]. Pt states that he works and will need to go to the wound care center for his wound care. He also stated he is getting PICC line for outpatient IV antibiotics at Dr. Ledbetter's office. CM met with Tricia Sandra RN/CM and Balta with wound care to explain pt request to go to wound care. They both stated they would work on this. Tricia Martin stated she will meet with pt to be sure he gets appointment. Notified pt that his CM will meet with him about wound care center. Educated on IMM letter and he verbalized understanding and signed. Signed copy placed in pt folder, and signed copy placed in pt chart. Notified CM that IMM letter completed.
--- NOTE | 2018-06-18 13:09 | NUR ---
CM SPOKE TO ADOL[facility] IN WOUND CARE REGARDING PATIENT TO RECEIVE TREATMENT OUTPATIENT WITH THEM. CM ASKED IF THEY NEEDED ANY INFORMATION FROM CM PRIOR TO PATIENT DISCHARGE. ADOL[facility] STATED THAT SHE WOULD NOT NEED ANYTHING FROM ME BUT THE PATIENT WILL NEED TO CALL TO GIVE THEM HIS INFORMATION AND SET UP APPOINTMENT. CM SPOKE TO PATIENT AT BEDSIDE AND INFORMED HIM TO CALL WOUND CARE CENTER TO SET UP FIRST VISIT. PATIENT STATES HE WILL DO IT SOON HE GETS TO HIS CALENDAR AT HOME. CM GAVE PATIENT WOUND CARE CENTER CARD AND CM CONTACT INFORMATION IF HE HAD ANY QUESTIONS OR CONCERNS.
--- NOTE | 2018-06-18 13:16 | NUR ---
DINA PA aware of BUN and creatinine levels. Orders for PICC line placement received
--- NOTE | 2018-06-18 14:02 | Diagnostic Imaging Report ---
Examination: Single AP view of the chest. COMPARISON: None. INDICATION: Line placement DISCUSSION: Lines/tubes: Right PICC line with the tip overlying the superior vena cava. Cardiac monitoring device. Lungs: The lungs are well inflated and clear. No pneumonia or pulmonary edema. Pleura: No pleural effusion or pneumothorax. Heart and mediastinum: The heart and the mediastinum are unremarkable. Bones and soft tissues: No acute bony abnormalities. Degenerative changes in the thoracic spine. IMPRESSION: 1. Satisfactory right PICC placement with tip overlying the superior vena cava. Signed by: Dr. Kodi Mclaughlin M.D. on 06/18/2018 1:58 PM
[2018-06-18] MEDS ORDERED: SODIUM CHLORIDE 0.9% 250ML 250 ML ONE (14:27)
[2018-06-18] MEDS ORDERED: VANCOMYCIN 1GM/NS 250 ML 250 ML IV ONE (14:30)
[2018-06-18 15:57] VITALS: BP 131/62
--- NOTE | 2018-06-18 16:00 | NUR ---
right wrist IV discontinued. No signs of infiltration noted. 2x2 gauze and tape placed
--- NOTE | 2018-06-18 16:15 | NUR ---
Visit made by the Spiritual Care Department Pastoral Visitor, Leander Fagan. PV provided pastoral presence, hospitality, and supportive listening. Pastoral Visitor informed pt/family of the scope of [employer] and availability. LAUREN JUARES Supervisor [employer] Spiritual Care Department O: [phone] Pager: [phone] ([phone] calling from)
--- NOTE | 2018-06-18 16:20 | NUR ---
aware of hemoglobin 7.3. Patient to discharge as ordered per
--- NOTE | 2018-06-18 17:29 | NUR ---
Right upper arm PICC clean,dry, and intact. Patient to get outpatient IV antibiotics. Taken via wheelchair by PCT to personal car. AAOX4 to time, person, place, situation. Respirations even and unlabored. YANETH wrap to left arm, clean, dry, and intact. Discharge instructions and all personal belongings taken with patient. No rx available at this time.
--- NOTE | 2018-06-22 10:28 | Operative Report ---
DATE OF PROCEDURE: June 16, 2018 POSTDOCTORAL SCHOLAR: Harvey Manley PA-C The patient was brought to the operating room for induction of anesthesia. Throughout this case, my PA's assistance was necessary for retraction of soft tissue and positioning of the extremity. This allows for efficient and technically successful execution of the operation and is considered medically necessary. PREOPERATIVE DIAGNOSIS: Septic olecranon bursitis, left elbow. POSTOPERATIVE DIAGNOSIS: Septic olecranon bursitis, left elbow. PROCEDURE: Irrigation and sharp debridement, left elbow. INDICATIONS: The patient is a 72-year-old gentleman who has clinic signs and symptoms consistent with septic left olecranon bursitis. This has been spontaneously draining but needs surgical debridement. The risks and benefits of the procedure have been discussed. He states he understands and wishes to proceed. DESCRIPTION OF PROCEDURE: The patient was brought to the operating room and placed under general anesthetic. His left upper extremity was prepped and draped in a sterile manner. A preoperative time out was performed. An incision was made over the posterior aspect of the left elbow. A large amount of purulent material was expressed from a large cavity in the posterior aspect of left arm. The cavity extended down towards the forearm. This was thoroughly irrigated with a shower-tip pulsatile lavage. The purulent material was sharply excised with a surgical knife. The wound was further irrigated and then packed with iodoform gauze. Two stitches were placed in the apex of the distal and proximal aspect of the incision. A sterile bandage was applied. He was extubated and transported to the recovery room in stable condition. Job#: [id number]
--- NOTE | 2018-07-18 17:44 | Discharge Summary ---
DISCHARGE DIAGNOSES: 1. Sepsis secondary to left olecranon bursitis, status post incision and drainage. 2. Diabetes. 3. Chronic kidney disease, stage 3. 4. Anemia secondary to chronic kidney disease. 5. Hyperlipidemia. 6. Coronary artery disease. HISTORY OF PRESENT ILLNESS AND HOSPITAL COURSE: See hospital chart for full details. The patient is a gentleman, who was tried as an outpatient to treat a left swollen elbow that turned out to be a septic olecranon bursitis of the left that required IV antibiotics and I and D by Dr. Daniels as well as evaluation from Dr. Ledbetter. Post I and D, the arm got much better, it did grow out MRSA. The patient had no complications. 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 Ledbetter, which was setup by Dr. Ledbetter and the patient was discharged home in good condition. Follow up with Dr. Ledbetter and Dr. Daniels. Please see hospital chart for full details. MD CLEOPATRA Olsen/LILIANA /[id number]
== END 2018-06-18 17:29 | disposition home or self-care (01) | DRG 854 ==
LOC: ER 09:04 → ERHOLD 09:44 → MED/SURG2 12:31
PROVIDERS: ADMIT Internal Medicine; ATTEND Internal Medicine
PROC: 0JDH0ZZ Extraction of Left Lower Arm Subcutaneous Tissue and Fascia, Open Approach (ICD-10-PCS; principal; 2018-06-16 12:29)
PROC: 02HV33Z Insertion of Infusion Device into Superior Vena Cava, Percutaneous Approach (ICD-10-PCS; 2018-06-18)
DX: A41.9 Sepsis, unspecified organism (principal); L03.114 Cellulitis of left upper limb; M86.8X2 Other osteomyelitis, upper arm; E11.69 Type 2 diabetes mellitus with other specified complication; M71.122 Other infective bursitis, left elbow; E11.22 Type 2 diabetes mellitus with diabetic chronic kidney disease; I12.9 Hypertensive chronic kidney disease with stage 1 through stage 4 chronic kidney disease, or unspecified chronic kidney disease; N18.3 Chronic kidney disease, stage 3 (moderate); B95.62 Methicillin resistant Staphylococcus aureus infection as the cause of diseases classified elsewhere; Z79.4 Long term (current) use of insulin; D63.1 Anemia in chronic kidney disease; I25.10 Atherosclerotic heart disease of native coronary artery without angina pectoris
CPT/HCPCS: 36415; 36569; 71045; 80048; 80053; 80202; 81001; 82948; 83036; 85025; 86140; 87040; 87071; 87075; 87186; 87205; 96361; 99284; J0692; J2001; J2270; J2543; J3370; J7030; J7050

== ENCOUNTER 2018-07-13 10:32 | Outpatient (RCR) | payer MEDICARE, OTHER ==
[~2018-07-13 10:32] MED LIST changes: +CIPRO500 MG PO; +LIDOCAINE VISC 2% SOLN 15 ML UDC ONE; +eliquis PO; +entresto PO
[2018-07-13] MEDS ORDERED: LIDOCAINE VISC 2% SOLN 15 ML UDC ONE (14:28)
== END 2018-07-15 ==
LOC: WCC 10:32
PROVIDERS: ATTEND Family Medicine Adult Medicine
DX: T81.89XA Other complications of procedures, not elsewhere classified, initial encounter (principal); M96.89 Other intraoperative and postprocedural complications and disorders of the musculoskeletal system; E11.21 Type 2 diabetes mellitus with diabetic nephropathy; I87.2 Venous insufficiency (chronic) (peripheral); I48.2 Chronic atrial fibrillation; I50.9 Heart failure, unspecified; I10 Essential (primary) hypertension

== ENCOUNTER 2018-08-13 14:04 | Outpatient (RCR) | payer MEDICARE, OTHER ==
[~2018-08-13 14:04] MED LIST changes: +LIDOCAINE/PRILOCAINE 2.5-2.5% KIT ONE
== END 2018-08-15 ==
LOC: WCC 14:04
PROVIDERS: ATTEND Family Medicine Adult Medicine
DX: T81.89XA Other complications of procedures, not elsewhere classified, initial encounter (principal); M96.89 Other intraoperative and postprocedural complications and disorders of the musculoskeletal system; E11.21 Type 2 diabetes mellitus with diabetic nephropathy; I87.2 Venous insufficiency (chronic) (peripheral); I10 Essential (primary) hypertension; I50.9 Heart failure, unspecified; I48.2 Chronic atrial fibrillation; B95.62 Methicillin resistant Staphylococcus aureus infection as the cause of diseases classified elsewhere

== ENCOUNTER 2018-09-07 13:21 | Outpatient (RCR) | payer MEDICARE, OTHER | END 2018-09-14 | LOC: WCC 13:21 | PROVIDERS: ATTEND Family Medicine Adult Medicine | DX: T81.89XA Other complications of procedures, not elsewhere classified, initial encounter (principal); M96.89 Other intraoperative and postprocedural complications and disorders of the musculoskeletal system; E11.21 Type 2 diabetes mellitus with diabetic nephropathy; I87.2 Venous insufficiency (chronic) (peripheral); I10 Essential (primary) hypertension; I48.2 Chronic atrial fibrillation; I50.9 Heart failure, unspecified; B95.62 Methicillin resistant Staphylococcus aureus infection as the cause of diseases classified elsewhere ==

== ENCOUNTER 2019-07-15 16:58 | Outpatient (RCR) | payer MEDICARE, OTHER ==
[~2019-07-15 16:58] MED LIST changes: +ELIQUIS5 MG PO; -LANTUS100 UNITS/; +LANTUS100 UNITS/ SQ; -LIDOCAINE VISC 2% SOLN 15 ML UDC ONE; -LIDOCAINE/PRILOCAINE 2.5-2.5% KIT ONE; +MINERAL OIL/PETROLAT/GLYCERI 6OZ BTL ONE; +MUPIROCIN 2% OINT 22 GM TUBE ONE; +SILVER SULFADIAZINE 50GM CREAM ONE; +TRYPSIN/BALSAM PERU/CASTOR OIL ONE
== END 2019-07-16 ==
LOC: WCC 16:58
PROVIDERS: ATTEND Podiatrist Foot Surgery
DX: T81.89XA Other complications of procedures, not elsewhere classified, initial encounter (principal); M96.89 Other intraoperative and postprocedural complications and disorders of the musculoskeletal system; E11.621 Type 2 diabetes mellitus with foot ulcer; E11.21 Type 2 diabetes mellitus with diabetic nephropathy; L97.521 Non-pressure chronic ulcer of other part of left foot limited to breakdown of skin; L97.529 Non-pressure chronic ulcer of other part of left foot with unspecified severity; L97.811 Non-pressure chronic ulcer of other part of right lower leg limited to breakdown of skin; L97.519 Non-pressure chronic ulcer of other part of right foot with unspecified severity; I87.331 Chronic venous hypertension (idiopathic) with ulcer and inflammation of right lower extremity; S80.822A Blister (nonthermal), left lower leg, initial encounter; I87.2 Venous insufficiency (chronic) (peripheral); R60.0 Localized edema; N17.9 Acute kidney failure, unspecified; I50.9 Heart failure, unspecified; I48.20 Chronic atrial fibrillation, unspecified; B96.89 Other specified bacterial agents as the cause of diseases classified elsewhere

== ENCOUNTER 2019-08-05 02:00 | Outpatient (RCR) | payer MEDICARE, OTHER ==
[~2019-08-05 02:00] MED LIST changes: +MINERAL OIL/PETROLAT/GLYCERI 2OZ CRM ONE; -MUPIROCIN 2% OINT 22 GM TUBE ONE; -TRYPSIN/BALSAM PERU/CASTOR OIL ONE
[2019-08-05] MEDS ORDERED: SILVER SULFADIAZINE 50GM CREAM ONE (11:51)
[2019-08-05] MEDS ORDERED: MINERAL OIL/PETROLAT/GLYCERI 2OZ CRM ONE (11:51)
== END 2019-08-16 ==
LOC: WCC 02:00
PROVIDERS: ATTEND Podiatrist Foot Surgery
DX: T81.89XA Other complications of procedures, not elsewhere classified, initial encounter (principal); M96.89 Other intraoperative and postprocedural complications and disorders of the musculoskeletal system; E11.21 Type 2 diabetes mellitus with diabetic nephropathy; E11.621 Type 2 diabetes mellitus with foot ulcer; I87.331 Chronic venous hypertension (idiopathic) with ulcer and inflammation of right lower extremity; L97.521 Non-pressure chronic ulcer of other part of left foot limited to breakdown of skin; L97.529 Non-pressure chronic ulcer of other part of left foot with unspecified severity; L97.519 Non-pressure chronic ulcer of other part of right foot with unspecified severity; R60.0 Localized edema; I87.2 Venous insufficiency (chronic) (peripheral); I10 Essential (primary) hypertension; B96.89 Other specified bacterial agents as the cause of diseases classified elsewhere; E78.5 Hyperlipidemia, unspecified; I48.20 Chronic atrial fibrillation, unspecified; I50.9 Heart failure, unspecified